=== PATIENT | male | born 1960 | race Caucasian/White ===

== ENCOUNTER → 2017-02-24 | Outpatient (CLI) | payer BC ==
--- NOTE | 2017-02-24 17:20 | CR ---
EXAMINATION: Right knee HISTORY: Artificial joint COMPARISON: 07/22/2016 TECHNIQUE: 3 views FINDINGS/IMPRESSION: Right total knee hardware is demonstrated in stable position and alignment. Mil d persistent postoperative soft tissue changes noted. No fracture or acute osseous abnormality.
--- NOTE | 2017-02-25 05:05 | MOCE ---
SERVICE DATE: 02/24/2017 PATIENT #: [id number] #: NOT DICTATED SUBJECTIVE: Chaz returns to clinic today for re-evaluation of his right knee. He previously underwent a right total knee arthroplasty on July 12, 2016. He had been doing well until approximately 1 week ago, when he noticed increased pain and swelling in his right knee. He states that this resolved over the course of the day. This past Tuesday, his pain again increased along with the swelling. He cannot recall a specific injury. He states that his pain and swelling have improved today. He is not having any pain at this time. He denies any episodes of the knee giving way. He is quite active and does work on concrete floors daily. PHYSICAL EXAMINATION: Right knee shows incision site to be clean and well healed. He has no joint effusion. He has full extension with flexion to 115 degrees. He is stable to varus and valgus stressing. His patella tracked centrally. He has no calf tenderness. Anterior tib, EHL, gastroc strength is 5/5. Dorsalis pedis and posterior tib pulses are 2+. IMAGING DATA: X-rays of the right knee were obtained. This shows good position of the total knee prosthesis. There was no evidence of loosening or acute injury. ASSESSMENT: 1. Painful right total knee arthroplasty. 2. Osteoarthritis of the right knee. PLAN: At this time, treatment options were discussed with the patient. I am unsure of the exact reason why his knee has had the 2 episodes of swelling and pain. He is currently asymptomatic at this time. I am recommending that the patient continue with activity as tolerated. If he has recurrence of his symptoms, he is advised to contact us. We will plan on obtaining laboratory studies including a CBC with differential, ESR, and CRP to rule out any sign of infection. /[id number]
== END | disposition home or self-care (01) ==
LOC: MW.CHORTHO 08:01
PROVIDERS: ATTEND Orthopaedic Surgery
DX: Z47.1 Aftercare following joint replacement surgery (principal); Z96.651 Presence of right artificial knee joint
CPT/HCPCS: 73562-26-RT; 73562-RT